=== PATIENT | female | born 2000 | race Caucasian/White ===

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

== ENCOUNTER 2019-07-24 16:00 | Day surgery (SDC) | payer BC, OTHER ==
[~2019-07-24] VITALS: Ht 157.5 cm; Wt 75.5 kg
[2019-07-24 16:46] LABS: BASO # 0.1 10^3/uL (0.0-0.2); BASO % 0.5 % (0.0-1.0); EOS # 0.2 10^3/uL (0.0-0.5); EOS % 1.2 % (0.0-3.0); HEMATOCRIT 44.1 % (36.0-47.0); HEMOGLOBIN 14.5 g/dl (12.0-15.5); LYMPH # 3.2 10^3/uL (1.5-5.0); MEAN CORPUSCULAR HGB CONC 32.9 g/dl (32.0-36.5); MEAN CORPUSCULAR VOLUME 91.1 fl (80.0-96.0); MONO # 1.3 10^3/uL (0.0-0.8); MONO % 7.3 % (0.0-5.0); NEUTROPHILS # 12.7 10^3/uL (1.5-8.5); NEUTROPHILS % 72.5 % (36.0-66.0); PLATELET COUNT, AUTOMATED 276 10^3/uL (150-450); RED BLOOD COUNT 4.84 10^6/uL (4.00-5.40); WHITE BLOOD COUNT 17.5 10^3/uL (4.0-10.0)
[2019-07-24] MEDS ORDERED: ISOVUE-370 76% 100ML VIAL (Q9967) As Ordered ONE (16:57)
[2019-07-24 17:08] LABS: BILIRUBIN,DIRECT 0.3 MG/DL (0.0-0.2); BILIRUBIN,TOTAL 1.4 MG/DL (0.2-1.0); TOTAL PROTEIN 8.1 GM/DL (6.4-8.2)
--- NOTE | 2019-07-24 17:21 | REPVR ---
PROCEDURE INFORMATION: Exam: CT Abdomen And Pelvis With Contrast Exam date and time: 07/24/2019 5:03 PM Age: 19 years old Clinical indication: Abdominal pain; Flank; Right lower quadrant (rlq); Additional info: Rlq pain; R/O appy TECHNIQUE: Imaging protocol: Computed tomography of the abdomen and pelvis with intravenous contrast. Radiation optimization: All CT scans at this facility use at least one of these dose optimization techniques: automated exposure control; mA and/or kV adjustment per patient size (includes targeted exams where dose is matched to clinical indication); or iterative reconstruction. Contrast material: ISOVUE 370; Contrast volume: 100 ml; Contrast route: IV; COMPARISON: No relevant prior studies available. FINDINGS: Liver: Normal. No mass. Gallbladder and bile ducts: Normal. No calcified stones. No ductal dilation. Pancreas: Normal. No ductal dilation. Spleen: Normal. No splenomegaly. Adrenals: Normal. No mass. Kidneys and ureters: Normal. No hydronephrosis. Stomach and bowel: Unremarkable. No obstruction. No mucosal thickening. Appendix: The appendix demonstrates diffuse distention measuring 14 mm, with mild periappendiceal fluid consistent with acute appendicitis. Intraperitoneal space: Unremarkable. No free air. No significant fluid collection. Vasculature: Unremarkable. No abdominal aortic aneurysm. Lymph nodes: There are ileocolic lymph nodes measuring up to 10 mm. Bladder: Unremarkable as visualized. Reproductive: Unremarkable as visualized. Bones/joints: Unremarkable. No acute fracture. Soft tissues: Unremarkable. IMPRESSION: 1. Acute appendicitis. 2. There are ileocolic lymph nodes measuring up to 10 mm. A critical call has been made to speak with the ordering physician/practitioner. This report will be amended once consultation has occurred. Electronically signed by: Abner Van On 07/24/2019 17:21:12 PM
[2019-07-24] MEDS ORDERED: PIPERACILLIN/TAZOBACTAM SOD 3.375 GM in D5W MINI-BAG PLUS 50 ML IV ONE (17:30)
[2019-07-24] MEDS ORDERED: LR 1,000 ML IV SCH ×2 (17:55→20:45)
[2019-07-24] MEDS ORDERED: BUPIVACAINE HCL 0.25% 30 ML VIAL As Ordered ONE (18:15)
[2019-07-24] MEDS ORDERED: LIDOCAINE 2% INJ 100 MG/5 ML SDV (FOR ANES.) As Ordered ONE (18:23)
[2019-07-24] MEDS ORDERED: PROPOFOL 200 MG/20 ML VIAL As Ordered ONE ×2 (18:23→18:50)
[2019-07-24] MEDS ORDERED: ROCURONIUM BROMIDE 50 MG/5 ML VIAL As Ordered ONE (18:24)
[2019-07-24] MEDS ORDERED: dexameTHASONE 4 MG/ML 1ML VIAL (J1100) As Ordered ONE ×2 (18:24→18:25)
[2019-07-24] MEDS ORDERED: MIDAZOLAM INJ 2 MG/2 ML VIAL (J2250) As Ordered ONE (18:24)
[2019-07-24] MEDS ORDERED: fentaNYL 100 MCG/2 ML INJECTION (J3010) As Ordered ONE ×2 (18:24→19:11)
[2019-07-24] MEDS ORDERED: SUCCINYLCHOLINE 100 MG/5 ML SYRINGE (J0330) As Ordered ONE (18:24)
[2019-07-24] MEDS ORDERED: ONDANSETRON 4MG/2ML VIAL (J2405) As Ordered ONE (18:25)
[2019-07-24] MEDS ORDERED: SUGAMMADEX SODIUM 500 MG/5 ML VIAL (BRIDION) As Ordered ONE (19:07)
[2019-07-24] MEDS ORDERED: KETOROLAC 60 MG/2 ML VIAL (J1885) As Ordered ONE (19:07)
[2019-07-24] MEDS ORDERED: ACETAMINOPHEN 1000MG 100ML IV BTL (OFIRMEV) (J0131 PER 10MG) As Ordered ONE (19:07)
[2019-07-24] MEDS ORDERED: METOCLOPRAMIDE INJ 10MG/2ML VIAL (J2765) As Ordered ONE (19:45)
[2019-07-24] MEDS ORDERED: IBUPROFEN 600 MG TAB PO PRN (20:30)
[2019-07-24] MEDS ORDERED: ACETAMINOPHEN TAB 650MG DOSE (2X325MG) PO PRN (20:30)
[2019-07-24] MEDS ORDERED: NORCO, ANEXSIA 5/325MG TABLET (HYDROcodone/ACETAMINOPHEN) PO PRN (20:30)
[2019-07-24] MEDS ORDERED: MORPHINE 2 MG/ML 1ML VIAL (J2270) IV PRN (20:30)
[2019-07-24] MEDS ORDERED: ONDANSETRON 4MG/2ML VIAL (J2405) IV PRN ×2 (20:30→20:45)
[2019-07-24] MEDS ORDERED: PERCOCET 5MG/325MG TAB PO PRN (20:45)
[2019-07-24] MEDS ORDERED: HYDROMORPHONE HCL 0.5 MG/ 0.5 ML SYRINGE (J1170 PER 1) IV PRN (20:45)
[2019-07-24] MEDS ORDERED: fentaNYL 100 MCG/2 ML INJECTION (J3010) IV PRN (20:45)
[2019-07-24 21:00] VITALS: BP 113/59
[2019-07-24 21:30] VITALS: BP 116/62
[2019-07-24 22:00] VITALS: BP 119/73
[2019-07-24 23:00] VITALS: BP 116/55
[2019-07-25] VITALS: BP 93/50
[2019-07-25 01:13] VITALS: BP 101/55
[2019-07-25 06:06] VITALS: BP 100/55
[2019-07-25 08:00] VITALS: BP 109/58
--- NOTE | 2019-07-25 14:58 | IPN ---
DATE: 07/25/2019 HISTORY: The patient is now postop day #1 from a laparoscopic appendectomy performed approximately 12-14 hours ago for acute appendicitis. She has done very well following surgery. Vital signs: Show that she has been afebrile and her pulse is now down into the 70s and 80s with a normal blood pressure and normal room air oxygen saturation. Intake and output shows that her urine output today has been 600 mL and she is taking liquids well. PHYSICAL EXAMINATION: The patient is alert, oriented and appears comfortable. Heart exam shows a regular rhythm and the lungs are clear. The abdomen is flat and soft. Her dressings are dry. IMPRESSION: The patient is doing very well now postop day #1 from a laparoscopic appendectomy. PLAN: The patient will be discharged today. I will not provide her with any prescription pain relievers as she has taken only one dose of Tylenol since surgery. She was counseled to use ukae-met-gyoqguh medications as needed. She was advised against any strenuous physical activity or lifting greater than 25 pounds for 2 weeks. I have asked her to followup with me in the office in 10 days. She can eat whatever she is comfortable with. She was counseled to contact my office if she noted any problems or changes that suggested an infection or other problem postop.
--- NOTE | 2019-07-26 08:36 | RO ---
DATE OF PROCEDURE: 07/24/2019 PREOPERATIVE DIAGNOSIS: Acute appendicitis. POSTOPERATIVE DIAGNOSIS: Acute appendicitis. PROCEDURE PERFORMED: Laparoscopic appendectomy. SURGEON: Dr. Hollins FOSTER WINDER: ANESTHESIA: General. INDICATIONS FOR THE PROCEDURE: The patient is a 19-year-old woman who presented to the emergency department with an approximately 3 day history of some abdominal pain. This had begun as a more diffuse upper abdominal discomfort and became settled into the right lower quadrant. She was found to have a mildly to moderately elevated white blood cell count. She had tenderness in the right mid and lower abdomen and a CT scan showed a dilated inflamed appendix. She is now for laparoscopic appendectomy. OPERATIVE PROCEDURE: The patient was brought to the operating room and placed on the table in a supine position. She was placed under general endotracheal anesthesia. Sequential stockings were applied. The patient's abdomen was prepped and draped in a sterile fashion. 0.25% Marcaine was infiltrated at each of the trocar sites as needed. A short supraumbilical midline incision was made and deepened through the subcutaneous tissues to the fascia. A very small umbilical hernia was identified in the course of dissection and this was incorporated into the fascial incision which was then made. Stay sutures were placed and the peritoneum was entered bluntly. A Suggs cannula was inserted and held with the stay sutures. The abdomen was insufflated with carbon dioxide gas. The laparoscope was placed. The patient was tilted to a Trendelenburg position. Inspection showed the top of the uterus was well seen and the right fallopian tube was partially seen as well. The liver was noted and was normal. Visualized loops of the small and large bowel appeared normal. The omentum was pulled up off of the structures in the right lower quadrant and the inflamed appendix was identified just inferior to the cecum. Two additional 5 mm ports were placed in the left lower quadrant. Graspers were inserted. The appendix was clearly dilated and quite hyperemic and edematous. The appendix overall was probably only 5-6 cm in length. A thin band of adhesions was identified connecting the right fallopian tube to the omentum in the right lower quadrant and this was cauterized and divided. The mesoappendix was then grasped and elevated. The mesoappendix was divided carefully using the hook cautery to ensure hemostasis. Once the base of the appendix had been clearly exposed, a 45 mm endoscopic linear cutter with a blue load was placed across the junction of the appendix and the cecum closed and fired. The appendix was nicely removed and this was then placed into an Endopouch. A single very small bleeding point along the staple line was cauterized. The right lower quadrant was irrigated. There was no bleeding identified. The patient was returned to a flat position. The abdomen was deflated and the trocars were all removed. The appendix was recovered through the supraumbilical site and sent for permanent pathology. The fascia at the umbilical site was closed with interrupted simple sutures of #2-0 Vicryl. This incorporated closure of her small umbilical hernia. The subcutaneous tissues at the umbilical site were also closed with a #2-0 Vicryl. The skin incisions were all closed with buried #4-0 Vicryl and Steri-Strips. Light dressings were applied. The patient tolerated the procedure well without apparent complication. She was awakened in the operating room, extubated and moved to the recovery room in stable condition.
== END 2019-07-25 10:35 | disposition home or self-care (01) ==
LOC: M ED 16:00 → M SDC 17:55 → M PED 22:00 → M SDC 07-25 10:35
PROVIDERS: ATTEND Surgery
DX: K35.30 Acute appendicitis with localized peritonitis, without perforation or gangrene (principal); J45.909 Unspecified asthma, uncomplicated; Z91.018 Allergy to other foods; Z91.012 Allergy to eggs
CPT/HCPCS: 44970; 74177; 80047; 80076; 81001; 83690; 84702; 85025; 88304; 93041; 96361; 96365; 99285; J0131; J0330; J1100; J1885; J2250; J2405; J2543; J2765; J3010; Q9967

== ENCOUNTER → 2020-11-15 | Outpatient (CLI) | payer BC, OTHER ==
--- NOTE | 2020-11-15 12:51 | REP ---
INDICATION: ACUTE BRONCHITIS, UNSPECIFIED COMPARISON: 07/29/2008, 11/08/2017 TECHNIQUE: PA and lateral. FINDINGS: The mediastinum and cardiac silhouette are normal. The lung [place] are clear and without acute consolidation, effusion, or pneumothorax. The skeletal structures are intact and normal. IMPRESSION: No acute cardiopulmonary process. <Electronically signed by Stone Chirinos > 11/15/20 [id number]
== END ==
LOC: M RAD 12:31
PROVIDERS: ATTEND Physician Assistant
DX: J20.9 Acute bronchitis, unspecified (principal)

== ENCOUNTER → 2023-04-14 | Outpatient (CLI) | payer BC, OTHER ==
[2023-04-14 15:44] LABS: BASO # 0.1 10^3/uL (0.0-0.2); BASO % 0.7 % (0.0-1.0); EOS # 0.7 10^3/uL (0.0-0.5); EOS % 6.4 % (0.0-3.0); HEMATOCRIT 40.8 % (36.0-47.0); HEMOGLOBIN 13.4 g/dl (12.0-15.5); LYMPH # 3.4 10^3/uL (1.5-5.0); LYMPH % 30.7 % (24.0-44.0); MEAN CORPUSCULAR HEMOGLOBIN 30.7 pg (27.0-33.0); MEAN CORPUSCULAR HGB CONC 32.8 g/dl (32.0-36.5); MEAN CORPUSCULAR VOLUME 93.6 fl (80.0-96.0); MONO # 0.8 10^3/uL (0.0-0.8); MONO % 7.1 % (2.0-8.0); NEUTROPHILS % 54.7 % (36.0-66.0); PLATELET COUNT, AUTOMATED 250 10^3/uL (150-450); RED BLOOD COUNT 4.36 10^6/uL (4.00-5.40)
[2023-04-14 16:08] LABS: TOTAL 25(OH) VITAMIN D 25.8 NG/ML (20.0-100.0)
[2023-04-14 17:05] LABS: IMMUNOGLOBULIN E 1307.9 IU/ML (0-378)
== END ==
LOC: M PLALAB 13:34
PROVIDERS: ATTEND Nurse Practitioner Family
DX: T78.01XD Anaphylactic reaction due to peanuts, subsequent encounter (principal)